=== PATIENT | female | born 1935 | race Caucasian/White ===

== ENCOUNTER → 2017-08-16 | Outpatient (CLI) | payer OTHER ==
[~2017-08-16] MED LIST: ALLEGRA ALLERGY60 MG PO; CALCIUM PO; CHOL10002 PO; Caltrate-600 W1 EACH; Estrace Vagin42.5 GM PV; GABA100 PO; LATANOPROST2.5 ML OP; LORTAB 10 MG-3473 ML PO; METPRE4DP PO; MULVIT; MULVITMINF PO; MYRBETRIQ50 MG PO; NAPR500 PO; NEURONTIN; Norco 5-325 Ta1 EACH PO; OXYB5 PO; PRIM50 PO; Sulfamethoxazo1 EAC4 PO; TIMO10T; VITAMIN B COMPLEX PO; Zithromax250 MG PO; [UNRECOGNIZED DRUG - OTHER]; [UNRECOGNIZED DRUG - REMARK]
== END | disposition home or self-care (01) ==
LOC: LAB EV 08:46
DX: N30.01 Acute cystitis with hematuria (principal)
CPT/HCPCS: 87077; 87086; 87186

== ENCOUNTER → 2017-08-24 | Outpatient (CLI) | payer OTHER ==
[2017-08-27 01:40] LABS: HPV Genotype 16 Not Detected (NOTDET); HPV Genotype 18 Not Detected (NOTDET)
[2017-09-04 11:25] LABS: HPV High Risk Other Not Detected (NOTDET)
== END | disposition home or self-care (01) ==
LOC: OLS 16:38
PROVIDERS: Nurse Practitioner Women's Health
DX: Z12.72 Encounter for screening for malignant neoplasm of vagina (principal); Z91.89 Other specified personal risk factors, not elsewhere classified
CPT/HCPCS: 87624; G0123

== ENCOUNTER → 2017-09-17 15:27 | Emergency (ER) | payer OTHER ==
[~2017-09-17] VITALS: Ht 172.7 cm; Wt 74.8 kg
== END | disposition home or self-care (01) ==
LOC: ER 15:27
DX: S93.402A Sprain of unspecified ligament of left ankle, initial encounter (principal); E11.40 Type 2 diabetes mellitus with diabetic neuropathy, unspecified; Z79.899 Other long term (current) drug therapy; W18.30XA Fall on same level, unspecified, initial encounter
CPT/HCPCS: 29515; 73610; 99283

== ENCOUNTER → 2017-10-18 | Outpatient (CLI) | payer OTHER | END | disposition home or self-care (01) | LOC: LAB EV 09:53 → LAB SHORT 09:53 | DX: N39.0 Urinary tract infection, site not specified (principal) | CPT/HCPCS: 87077; 87086; 87186 ==

== ENCOUNTER → 2018-02-12 | Outpatient (CLI) | payer OTHER | END | disposition home or self-care (01) | LOC: LAB EV 17:53 → LAB SHORT 17:53 | DX: N30.01 Acute cystitis with hematuria (principal) | CPT/HCPCS: 87077; 87086; 87186 ==

== ENCOUNTER → 2018-06-06 | Outpatient (CLI) | payer OTHER | END | disposition home or self-care (01) | LOC: LAB SHORT 10:44 → LAB EV 10:44 | DX: N39.0 Urinary tract infection, site not specified (principal) | CPT/HCPCS: 87086 ==

== ENCOUNTER → 2018-12-10 | Outpatient (CLI) | payer OTHER ==
[~2018-12-10] MED LIST changes: +ALEN70; +CEFD300 PO; +CEFP200 PO; +ONDA4ODT MM; +PREG200; +PROM25 PO; +Primidone50 MG
== END | disposition home or self-care (01) ==
LOC: LAB SHORT 13:50 → LAB EV 13:50
DX: N39.0 Urinary tract infection, site not specified (principal)
CPT/HCPCS: 87086

== ENCOUNTER → 2019-01-11 | Outpatient (CLI) | payer OTHER | END | disposition home or self-care (01) | LOC: LAB SHORT 15:12 → LAB EV 15:12 | DX: N39.0 Urinary tract infection, site not specified (principal) | CPT/HCPCS: 87086 ==

== ENCOUNTER 2019-01-12 04:11 | Emergency (ER) | payer OTHER ==
[~2019-01-12] VITALS: Ht 172.7 cm; Wt 78.9 kg
[~2019-01-12 04:11] MED LIST changes: -ALEN70; -CEFD300 PO; -CEFP200 PO; -ONDA4ODT MM; -PREG200; -PROM25 PO; -Primidone50 MG
[2019-01-12] MEDS ORDERED: Primidone50 MG (04:27)
[2019-01-12] MEDS ORDERED: ALEN70 (04:27)
[2019-01-12] MEDS ORDERED: PREG200 (04:28)
[2019-01-12] MEDS ORDERED: CEFD300 PO (04:30)
[2019-01-12 05:31] LABS: BASOPHILS ABSOLUTE AUTO 0.02 K/mm3 (0.00-0.23); BASOPHILS PERCENT AUTO 0 % (0-2); EOSINOPHILS ABSOLUTE AUTO 0.17 K/mm3 (0.00-0.68); EOSINOPHILS PERCENT AUTO 3 % (0-6); Hematocrit 38.9 % (33.0-51.0); Hemoglobin 12.9 g/dL (11.5-16.0); IMMATURE GRAN ABSOLUTE AUTO 0.02 K/mm3 (0.00-0.10); IMMATURE GRAN PERCENT AUTO 0 % (0-1); LYMPHOCYTES ABSOLUTE AUTO 1.03 K/mm3 (0.84-5.20); LYMPHOCYTES PERCENT AUTO 17 % (21-46); MONOCYTES ABSOLUTE AUTO 0.43 K/mm3 (0.16-1.47); MONOCYTES PERCENT AUTO 7 % (4-13); Mean Corpuscular HGB 30.4 pg (26.0-34.0); Mean Corpuscular HGB Conc 33.2 g/dL (31.5-36.5); Mean Corpuscular Volume 92 fL (80-100); NEUTROPHILS ABSOLUTE AUTO 4.24 K/mm3 (1.96-9.15); NEUTROPHILS PERCENT AUTO 72 % (41-73); RDW Coefficient Variation 14.4 % (11.7-14.2); RDW Standard Deviation 48.3 fL (35.1-46.3); Red Blood Cell Count 4.25 M/mm3 (3.80-5.20); White Blood Cell Count 5.91 K/mm3 (4.00-11.30)
[2019-01-12 05:39] LABS: Platelet Count 193 K/mm3 (150-400)
[2019-01-12 05:49] LABS: Alanine Aminotransfer (ALT/SGP 14 U/L (12-78); Albumin, Blood 3.5 g/dL (3.4-5.0); Albumin/Globulin Ratio 0.9 (0.8-1.8); Alk Phos 68 U/L (50-136); Anion Gap 7 mmol/L (6-16); Aspartate Aminotrans (AST/SGOT 25 U/L (12-37); Bilirubin, Total 0.5 mg/dL (0.1-1.0); Blood Urea Nitrogen 7 mg/dL (8-24); Bun/Creatinine Ratio 11.3 (12.0-20.0); CO2, Blood 24 mmol/L (21-32); Calcium, Blood 8.4 mg/dL (8.5-10.1); Chloride, Blood 104 mmol/L (98-108); Creatinine, Blood 0.62 mg/dL (0.40-1.00); Globulin, Blood 3.9 g/dL (2.2-4.0); Glomerular Filtration Rate >60 (60-); Glucose, Blood 110 mg/dL (70-99); Sodium, Blood 135 mmol/L (136-145); Total Protein, Blood 7.4 g/dL (6.4-8.2)
[2019-01-12] MEDS ORDERED: CEFP200 PO (07:12)
[2019-01-12] MEDS ORDERED: ONDA4ODT MM (07:12)
== END 2019-01-12 07:25 | disposition home or self-care (01) ==
LOC: ER 04:11
PROVIDERS: Emergency Medicine
DX: R11.2 Nausea with vomiting, unspecified (principal); T36.1X5A Adverse effect of cephalosporins and other beta-lactam antibiotics, initial encounter; N39.0 Urinary tract infection, site not specified; Z88.5 Allergy status to narcotic agent; Z79.899 Other long term (current) drug therapy; E11.40 Type 2 diabetes mellitus with diabetic neuropathy, unspecified
CPT/HCPCS: 36415; 80053; 83690; 85025; 96374; 99283-25; J2405

== ENCOUNTER 2019-01-16 08:15 | Emergency (ER) | payer OTHER ==
[~2019-01-16] VITALS: Ht 172.7 cm; Wt 78.9 kg
[~2019-01-16 08:15] MED LIST changes: +ALEN70; +CEFD300 PO; +CEFP200 PO; +ONDA4ODT MM; +PREG200; +Primidone50 MG
[2019-01-16 09:15] LABS: Chloride (POC) 99 mmol/L (98-108); Creatinine (POC) 0.7 mg/dL (0.6-1.0); Glucose (ISTAT POC) 141 mg/dL (70-99); Hemoglobin (POC) 13.6 g/dL (12.0-16.0); Potassium (POC) 3.8 mmol/L (3.5-5.5); Sodium (POC) 136 mmol/L (135-148); Total CO2 (POC) 25 mmol/L (21-32)
[2019-01-16] MEDS ORDERED: PROM25 PO (10:05)
== END 2019-01-16 10:35 | disposition home or self-care (01) ==
LOC: ER 08:15
PROVIDERS: Physician Assistant
DX: R11.0 Nausea (principal); Z88.5 Allergy status to narcotic agent; Z79.899 Other long term (current) drug therapy; E11.40 Type 2 diabetes mellitus with diabetic neuropathy, unspecified
CPT/HCPCS: 80047; 85014; 99283

== ENCOUNTER → 2019-01-25 | Outpatient (CLI) | payer OTHER ==
[~2019-01-25] MED LIST changes: +PROM25 PO
[2019-01-25 13:30] LABS: BASOPHILS ABSOLUTE AUTO 0.02 K/mm3 (0.00-0.23); BASOPHILS PERCENT AUTO 0 % (0-2); EOSINOPHILS ABSOLUTE AUTO 0.14 K/mm3 (0.00-0.68); EOSINOPHILS PERCENT AUTO 2 % (0-6); Hemoglobin 14.1 g/dL (11.5-16.0); IMMATURE GRAN ABSOLUTE AUTO 0.02 K/mm3 (0.00-0.10); IMMATURE GRAN PERCENT AUTO 0 % (0-1); LYMPHOCYTES ABSOLUTE AUTO 1.29 K/mm3 (0.84-5.20); LYMPHOCYTES PERCENT AUTO 19 % (21-46); MONOCYTES ABSOLUTE AUTO 0.46 K/mm3 (0.16-1.47); MONOCYTES PERCENT AUTO 7 % (4-13); Mean Corpuscular HGB 30.3 pg (26.0-34.0); Mean Corpuscular HGB Conc 34.4 g/dL (31.5-36.5); Mean Platelet Volume 9.3 fL (9.1-12.4); NEUTROPHILS ABSOLUTE AUTO 4.82 K/mm3 (1.96-9.15); NEUTROPHILS PERCENT AUTO 71 % (41-73); Platelet Count 296 K/mm3 (150-400); RDW Coefficient Variation 14.7 % (11.7-14.2); Red Blood Cell Count 4.65 M/mm3 (3.80-5.20); White Blood Cell Count 6.75 K/mm3 (4.00-11.30)
[2019-01-25 13:31] LABS: Mean Corpuscular Volume 88 fL (80-100)
[2019-01-25 13:39] LABS: Alanine Aminotransfer (ALT/SGP 35 U/L (12-78); Albumin, Blood 3.6 g/dL (3.4-5.0); Albumin/Globulin Ratio 0.9 (0.8-1.8); Alk Phos 64 U/L (40-126); Anion Gap 11 mmol/L (6-16); Aspartate Aminotrans (AST/SGOT 24 U/L (12-37); Bilirubin, Total 0.3 mg/dL (0.1-1.0); Blood Urea Nitrogen 14 mg/dL (8-24); Bun/Creatinine Ratio 18.7 (12.0-20.0); CO2, Blood 24 mmol/L (21-32); Calcium, Blood 8.7 mg/dL (8.5-10.1); Chloride, Blood 96 mmol/L (98-108); Creatinine, Blood 0.75 mg/dL (0.40-1.00); Globulin, Blood 3.9 g/dL (2.2-4.0); Glomerular Filtration Rate >60 (60-); Glucose, Blood 126 mg/dL (70-99); Potassium, Blood 4.5 mmol/L (3.5-5.5); Sodium, Blood 131 mmol/L (136-145); Total Protein, Blood 7.5 g/dL (6.4-8.2)
[2019-01-25 13:42] LABS: Source, Urine Catheter
[2019-01-25 13:46] LABS: Red Blood Cells, Urine 0-2 /hpf (0-2); Squamous Epithelial Cells Not Seen /hpf (Few); White Blood Cells, Urine 25-50 /hpf (0-5)
[2019-01-25 13:47] LABS: Bacteria Few /hpf
== END | disposition home or self-care (01) ==
LOC: LAB SHORT 13:25 → LAB EV 13:25
PROVIDERS: General Practice
DX: I95.1 Orthostatic hypotension (principal); R82.90 Unspecified abnormal findings in urine
CPT/HCPCS: 80053; 81015; 83690; 85025; 87077; 87086; 87186

== ENCOUNTER → 2019-01-26 | Outpatient (CLI) | payer OTHER ==
[2019-01-26 10:52] LABS: BASOPHILS ABSOLUTE AUTO 0.02 K/mm3 (0.00-0.23); BASOPHILS PERCENT AUTO 0 % (0-2); EOSINOPHILS PERCENT AUTO 2 % (0-6); Hematocrit 39.2 % (33.0-51.0); Hemoglobin 13.4 g/dL (11.5-16.0); IMMATURE GRAN ABSOLUTE AUTO 0.02 K/mm3 (0.00-0.10); IMMATURE GRAN PERCENT AUTO 0 % (0-1); LYMPHOCYTES ABSOLUTE AUTO 0.94 K/mm3 (0.84-5.20); LYMPHOCYTES PERCENT AUTO 18 % (21-46); MONOCYTES ABSOLUTE AUTO 0.41 K/mm3 (0.16-1.47); MONOCYTES PERCENT AUTO 8 % (4-13); Mean Corpuscular HGB 30.5 pg (26.0-34.0); Mean Corpuscular HGB Conc 34.2 g/dL (31.5-36.5); Mean Corpuscular Volume 89 fL (80-100); Mean Platelet Volume 9.2 fL (9.1-12.4); NEUTROPHILS ABSOLUTE AUTO 3.63 K/mm3 (1.96-9.15); NEUTROPHILS PERCENT AUTO 71 % (41-73); Platelet Count 248 K/mm3 (150-400); RDW Coefficient Variation 14.9 % (11.7-14.2); RDW Standard Deviation 48.5 fL (35.1-46.3); Red Blood Cell Count 4.39 M/mm3 (3.80-5.20); White Blood Cell Count 5.12 K/mm3 (4.00-11.30)
[2019-01-26 11:05] LABS: Alanine Aminotransfer (ALT/SGP 33 U/L (12-78); Albumin, Blood 3.2 g/dL (3.4-5.0); Albumin/Globulin Ratio 0.9 (0.8-1.8); Alk Phos 57 U/L (40-126); Anion Gap 12 mmol/L (6-16); Aspartate Aminotrans (AST/SGOT 25 U/L (12-37); Bilirubin, Total 0.3 mg/dL (0.1-1.0); Blood Urea Nitrogen 7 mg/dL (8-24); Bun/Creatinine Ratio 10.1 (12.0-20.0); CO2, Blood 21 mmol/L (21-32); CPK Creatine Kinase 42 U/L (26-192); Calcium, Blood 8.8 mg/dL (8.5-10.1); Chloride, Blood 101 mmol/L (98-108); Creatinine, Blood 0.69 mg/dL (0.40-1.00); Globulin, Blood 3.5 g/dL (2.2-4.0); Glomerular Filtration Rate >60 (60-); Glucose, Blood 127 mg/dL (70-99); Potassium, Blood 3.9 mmol/L (3.5-5.5); Sodium, Blood 134 mmol/L (136-145); Total Protein, Blood 6.7 g/dL (6.4-8.2)
[2019-01-26 11:16] LABS: Troponin I <0.017 ng/mL (0.000-0.040)
[2019-01-26 11:22] LABS: Bacteria Not Seen /hpf; Red Blood Cells, Urine Rare /hpf (0-2); Source, Urine Clean Catch; Squamous Epithelial Cells Not Seen /hpf (Few); White Blood Cells, Urine 0-2 /hpf (0-5)
[2019-01-26 11:50] LABS: Source, Urine Catheter
[2019-01-26 11:54] LABS: Bacteria Not Seen /hpf; Squamous Epithelial Cells Rare /hpf (Few)
== END | disposition home or self-care (01) ==
LOC: LAB EV 10:46 → LAB SHORT 10:46
PROVIDERS: General Practice
DX: N39.0 Urinary tract infection, site not specified (principal); R00.2 Palpitations
CPT/HCPCS: 80053; 81015; 82550; 83605; 83880; 84484; 85025; 85651

== ENCOUNTER → 2019-01-27 | Outpatient (CLI) | payer OTHER ==
[2019-01-27 10:58] LABS: Source, Urine Clean Catch
[2019-01-27 11:00] LABS: BASOPHILS ABSOLUTE AUTO 0.02 K/mm3 (0.00-0.23); BASOPHILS PERCENT AUTO 0 % (0-2); EOSINOPHILS ABSOLUTE AUTO 0.11 K/mm3 (0.00-0.68); EOSINOPHILS PERCENT AUTO 2 % (0-6); Hematocrit 39.8 % (33.0-51.0); Hemoglobin 13.4 g/dL (11.5-16.0); IMMATURE GRAN ABSOLUTE AUTO 0.03 K/mm3 (0.00-0.10); IMMATURE GRAN PERCENT AUTO 0 % (0-1); LYMPHOCYTES ABSOLUTE AUTO 0.81 K/mm3 (0.84-5.20); LYMPHOCYTES PERCENT AUTO 12 % (21-46); MONOCYTES PERCENT AUTO 9 % (4-13); Mean Corpuscular HGB 30.2 pg (26.0-34.0); Mean Corpuscular HGB Conc 33.7 g/dL (31.5-36.5); Mean Corpuscular Volume 90 fL (80-100); Mean Platelet Volume 9.2 fL (9.1-12.4); NEUTROPHILS PERCENT AUTO 77 % (41-73); Platelet Count 266 K/mm3 (150-400); RDW Coefficient Variation 14.9 % (11.7-14.2); RDW Standard Deviation 48.6 fL (35.1-46.3); Red Blood Cell Count 4.43 M/mm3 (3.80-5.20); White Blood Cell Count 6.77 K/mm3 (4.00-11.30)
[2019-01-27 11:03] LABS: Bacteria Not Seen /hpf; Red Blood Cells, Urine 0-2 /hpf (0-2); Squamous Epithelial Cells Not Seen /hpf (Few); White Blood Cells, Urine 0-2 /hpf (0-5)
[2019-01-27 11:15] LABS: Alanine Aminotransfer (ALT/SGP 36 U/L (12-78); Albumin, Blood 3.1 g/dL (3.4-5.0); Albumin/Globulin Ratio 0.8 (0.8-1.8); Alk Phos 62 U/L (40-126); Anion Gap 8 mmol/L (6-16); Aspartate Aminotrans (AST/SGOT 28 U/L (12-37); Bilirubin, Total 0.2 mg/dL (0.1-1.0); Blood Urea Nitrogen 4 mg/dL (8-24); Bun/Creatinine Ratio 4.8 (12.0-20.0); CO2, Blood 26 mmol/L (21-32); Calcium, Blood 8.1 mg/dL (8.5-10.1); Chloride, Blood 105 mmol/L (98-108); Creatinine, Blood 0.84 mg/dL (0.40-1.00); Globulin, Blood 3.7 g/dL (2.2-4.0); Glomerular Filtration Rate >60 (60-); Glucose, Blood 127 mg/dL (70-99); Potassium, Blood 3.8 mmol/L (3.5-5.5); Sodium, Blood 139 mmol/L (136-145); Total Protein, Blood 6.8 g/dL (6.4-8.2)
[2019-01-27 11:23] LABS: Troponin I <0.017 ng/mL (0.000-0.040)
[2019-01-27 12:08] LABS: Free Thyroxine 1.26 ng/dL (0.70-1.60); Thyroid Stimulating Hormone 2.562 uIU/mL (0.360-4.800)
== END | disposition home or self-care (01) ==
LOC: LAB EV 10:55 → LAB SHORT 10:55
PROVIDERS: General Practice
DX: N39.0 Urinary tract infection, site not specified (principal); R00.2 Palpitations
CPT/HCPCS: 80053; 81015; 84439; 84443; 84484; 85025

== ENCOUNTER 2020-03-01 20:21 | Emergency (ER) | payer OTHER ==
[~2020-03-01] VITALS: Ht 175.3 cm; Wt 78.0 kg
[2020-03-01 21:42] LABS: Source, Urine Clean Catch
[2020-03-01 21:46] LABS: Bilirubin, Urine Neg (Neg); Blood, Urine 3+ (Neg); Glucose Qualitative, Urine Neg (Neg); Ketones, Urine Neg (Neg); Leukocyte Esterase, Urine 3+ (Neg); Nitrite, Urine Neg (Neg); Protein, Urine Neg (Neg); Urobilinogen, Urine NORM (Normal)
[2020-03-01 21:52] LABS: Appearance, Urine Clear (Clear); Color, Urine Yellow (P-Yellow)
[2020-03-01 21:53] LABS: Bacteria Few /hpf; Red Blood Cells, Urine 0-2 /hpf (0-2); Squamous Epithelial Cells Not Seen /hpf (Few)
[2020-03-01] MEDS ORDERED: CEFP200 PO (22:19)
== END 2020-03-01 23:18 | disposition home or self-care (01) ==
LOC: ER 20:21
PROVIDERS: Emergency Medicine
DX: N30.90 Cystitis, unspecified without hematuria (principal); E11.40 Type 2 diabetes mellitus with diabetic neuropathy, unspecified; Z46.6 Encounter for fitting and adjustment of urinary device; Z88.5 Allergy status to narcotic agent; Z79.899 Other long term (current) drug therapy
CPT/HCPCS: 51702; 81001; 87077; 87086; 87186; 99283-25; A9270-GY

== ENCOUNTER → 2020-07-04 | Outpatient (CLI) | payer OTHER ==
[~2020-07-04] MED LIST changes: +Acerola C500 MG PO; +BETIMOL5 ML; +GABA300 PO; +KAPSPARGO SPRIN25 MG PO; +KEFLEX500 MG PO; +MIDO5 PO; +Macrobid 100 M100 MG PO; +Primidone50 MG PO
== END | disposition home or self-care (01) ==
LOC: LAB 11:00 → LAB SHORT 11:00
DX: T83.511A Infection and inflammatory reaction due to indwelling urethral catheter, initial encounter (principal); N39.0 Urinary tract infection, site not specified
CPT/HCPCS: 87086

== ENCOUNTER 2020-07-29 06:45 | Day surgery (SDC) | payer OTHER, SELFPAY ==
[~2020-07-29] VITALS: Ht 175.3 cm; Wt 78.0 kg
[~2020-07-29 06:45] MED LIST changes: -Acerola C500 MG PO; -BETIMOL5 ML
[2020-07-29] MEDS ORDERED: Acerola C500 MG PO (07:38)
--- NOTE | 2020-07-29 11:28 | NUR ---
PT BROUGHT TO RECOVERY POST PACEMAKER INSERTION TO RIGHT SIDE CHEST. PT AOX4, TEARFUL, C/O RIGHT ARM PAIN. REPOSITIONED FOR COMFORT. RIGHT ARM PLACED INTO SLING. SISTER AT BEDSIDE, DR. OLSEN PRESENT TO DISCUSS RESULTS WITH PT AND FAMILY. PACEMAKER INSERTION SITE APPEARS TO BE WNL, NO ACTIVE BLEEDING OR OOZING NOTED. CALL LIGHT IN REACH.
--- NOTE | 2020-07-29 13:19 | NUR ---
PT MEDICATED WITH FENTANYL 25 MCG IVP FOR 5/10 PAIN TO RIGHT SHOULDER/ARM. PILLOW PLACED UNDER RIGHT ARM WHICH REMAINS IN SLING. PT REPORTS DECREASED PAIN DOWN TO 1/10. SISTER REMAINS AT BEDSIDE. WILL CONTINUE TO MONITOR.
--- NOTE | 2020-07-29 15:15 | NUR ---
PT TRANSFERED TO PCU VIA W/C. NO ACUTE DISTRESS NOTED AT TIME OF TRANSFER. RIGHT ARM REMAINS IN SLING, DRESSING INTACT, NO BLEEDING OR OOZING NOTED. PT REPORTS TOLERABLE PAIN TO RIGHT ARM/SHOULDER. SISTER PRESENT, PERSONAL BELONGINGS SENT TO PCU 16 WITH PATIENT.
--- NOTE | 2020-07-29 17:24 | NUR ---
ASSUMED CARE FROM [facility], SHIFT SUMMARY PT ARRIVED FROM THE [facility]ART [facility]ENTER AT APPROXIMATELY 1520. PT HAD A PACER PLACED THIS MORNING IN THE RIGHT CHEST WALL. PT ARRIVED WITH A SLING IN PLACE AND WAS GIVEN SCD'S AND POST PACER CARE INSTRUCTIONS UPON ARRIVAL. PT IS IN SR, HR AT 61 PER TELE MONITOR, Didi ISRAEL. VS STABLE, PT ON RA. PT DENIES PAIN AT THIS TIME. PT HAS CHRONIC ANDERSON CATH IN PLACE, WILL BE CHANGED BEFORE END OF SHIFT. PT IS ALERT AND ORIENTED, LUNG SOUNDS ARE CLEAR. PT HAS 2+EDEMA BLE. 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 PT IS AWAKE AND EATING DINNER AT THIS TIME
[2020-07-29 18:14] LABS: Source, Urine Catheter
[2020-07-29 18:33] LABS: Appearance, Urine Clear (Clear); Bilirubin, Urine Neg (Neg); Blood, Urine 3+ (Neg); Color, Urine Yellow (P-Yellow); Glucose Qualitative, Urine Neg (Neg); Ketones, Urine Neg (Neg); Leukocyte Esterase, Urine 2+ (Neg); Nitrite, Urine Neg (Neg); Protein, Urine Neg (Neg); Urobilinogen, Urine NORM (Normal); pH, Urine 6.5 (5.0-8.0)
[2020-07-29 18:48] LABS: Squamous Epithelial Cells Rare /hpf (Few)
[2020-07-29 18:49] LABS: Bacteria Rare /hpf
--- NOTE | 2020-07-29 18:56 | NUR ---
CATHETER PT HAS A CHRONIC INDWELLING ANDERSON, IT WAS REPLACED THIS EVENING PER PROTOCOL. PT TOLERATED WELL. UA WAS SENT TO THE LAB. PT REPORTS THAT IT WILL BE REMOVED IN THE NEXT FEW WEEKS AND REPLACED WITH A SUPRAPUBIC CATHETER.
--- NOTE | 2020-07-30 06:23 | NUR ---
SHIFT SUMMARY PT A&O X 3; PLEASANT & COMPLIANT W/ CARE; VSS; PACED IN 60'S ON TELE; ARM SLING IN PLACE; SMALL AMOUNT DRIED BLOOD ON DRESSING; C/O PAIN AND ICE PACK OFFERED; TYLENOL ADMINISTERED PER EMAR; ANDERSON PATENT & DRAINING YELLOW, ODOR NOTED; PT SLEPT SEVERAL HOURS IN BETWEEN INTERVENITONS; CALL LIGHT IN REACH; BED IN LOWEST POSITION; WILL CONTINUE TO MONITOR CLOSELY UNTIL HAND OFF TO DAY SHIFT RN.
--- NOTE | 2020-07-30 10:04 | NUR ---
ASSUMED CARE FROM [facility] RN, MORNING UPDATE PT WAS AWAKE AND PARTICIPATED IN MORNING BEDSIDE REPORT. VS STABLE THIS MORNING. AT APPROXIMATELY 0815 PT WENT INTO SVT, HR IN 140s. ECG STRIPS WERE PRINTED, AN EKG WAS COMPLETED. DR. OLSEN CAME TO BESIDE AND ADENSOINE WAS ADMINISTERED AND THE METOPROLOL WAS INCREASED. PT FELT SOME FAST BEATING IN HER CHEST BUT WAS OTHERWISE ASYMPTOMATIC. VS STABLE, PACER SITE C/D/I. PT WEARING SLING AND SCDs. PT ENJOYED BREAKFAST AND WILL REMAIN HERE FOR OBS UNTIL THE SVT IS CONTROLLED BY MEDICATION
--- NOTE | 2020-07-30 12:25 | NUR ---
DISCHARGE PT DISCHARGED AND LEFT THE PCU AT APPROXIMATELY 1223. PT LEFT VIA WHEELCHAIR ACCOMPANIED BY GREEN CHAIN WORKER AND SISTER. PT WAS GIVEN DISCHARGE INSTRUCTIONS TO CARE FOR THE PACEMAKER SITE, SHE WAS GIVEN A SLING AND INFORMATION REGARDING FOLLOW UP APPOINTMENTS AND MEDICATION DOSAGE CHANGES.
[2020-10-06] MEDS ORDERED: BETIMOL5 ML (13:36)
== END 2020-07-30 12:24 | disposition home or self-care (01) ==
LOC: MHTC 06:45 → PCU 15:00 → MHTC 07-30 12:24
PROVIDERS: Internal Medicine Cardiovascular Disease
DX: I49.5 Sick sinus syndrome (principal); I47.1 Supraventricular tachycardia; K21.9 Gastro-esophageal reflux disease without esophagitis; E78.5 Hyperlipidemia, unspecified; M19.90 Unspecified osteoarthritis, unspecified site; M81.0 Age-related osteoporosis without current pathological fracture; E11.9 Type 2 diabetes mellitus without complications; I10 Essential (primary) hypertension; I87.2 Venous insufficiency (chronic) (peripheral); I83.899 Varicose veins of unspecified lower extremity with other complications; R55 Syncope and collapse; Z88.5 Allergy status to narcotic agent; Z96.641 Presence of right artificial hip joint; Z95.0 Presence of cardiac pacemaker
CPT/HCPCS: 33208; 71045; 71046; 76937; 81001; 93005; 93010; 99152; 99153; A9270; C1781; C1785; C1894; C1898; J0153; J0690; J1644; J2250; J3010; J7030; J7040; Q2038

== ENCOUNTER → 2020-08-03 | Outpatient (CLI) | payer OTHER, SELFPAY ==
[~2020-08-03] MED LIST changes: +Acerola C500 MG PO; +BETIMOL5 ML
== END | disposition home or self-care (01) ==
LOC: LAB SHORT 12:27 → PLD 12:27 → LAB 12:27
DX: R30.9 Painful micturition, unspecified (principal)
CPT/HCPCS: 87086

== ENCOUNTER 2020-08-24 07:04 | Day surgery (SDC) | payer OTHER, SELFPAY ==
[~2020-08-24] VITALS: Ht 172.7 cm; Wt 77.0 kg
[~2020-08-24 07:04] MED LIST changes: -BETIMOL5 ML
--- NOTE | 2020-08-24 09:30 | NUR ---
PT BACK TO RECOVERY ROOM VIA BED AFTER PROCEDURE. APPROX 275 MLS BLOOD TINGED URINE PRESENT IN SUPRA PUBIC DRAINAGE BAG, APPROX 400 MLS BLOOD TINGED URINE PRESENT IN ANDERSON CATH BAG. BOTH BAGS DRAINED, WILL CONTINUE TO MONITOR PT'S OUTPUT UNTIL DC'D HOME.
--- NOTE | 2020-08-24 11:34 | NUR ---
DR SWARTZ AT BEDSIDE SPEAKING WITH PT AND SISTER ABOUT PROCEDURE AND PLANS FOR UPSIZING CATH IN A MONTH AND A HALF.
--- NOTE | 2020-08-24 12:00 | NUR ---
IV DC'D, CATH INTACT. PT AND SISTER VERBALIZED UNDERSTANDING OF DC INSTRUCTIONS AND FOLLOW UP INFORMATION. OUT TO CAR VIA WHEELCHAIR BY RN.
[2020-10-06] MEDS ORDERED: BETIMOL5 ML (13:36)
== END 2020-08-24 11:50 | disposition home or self-care (01) ==
LOC: MHTC 07:04 → ORSCMMR 07:05 → MHTC 07:16
DX: R33.9 Retention of urine, unspecified (principal); N31.9 Neuromuscular dysfunction of bladder, unspecified; I10 Essential (primary) hypertension; E11.9 Type 2 diabetes mellitus without complications; K21.9 Gastro-esophageal reflux disease without esophagitis; E78.5 Hyperlipidemia, unspecified; M19.90 Unspecified osteoarthritis, unspecified site; M81.0 Age-related osteoporosis without current pathological fracture; Z87.440 Personal history of urinary (tract) infections
CPT/HCPCS: 51102; 76937; 82947; C1729; C1769; J2250; J2370; J2704; J3010; J7120; Q9967

== ENCOUNTER 2020-10-01 18:27 | Emergency (ER) | payer OTHER ==
[~2020-10-01] VITALS: Ht 175.3 cm; Wt 78.9 kg
[2020-10-06] MEDS ORDERED: BETIMOL5 ML (13:36)
== END 2020-10-01 21:16 | disposition home or self-care (01) ==
LOC: ER 18:27
DX: T83.198A Other mechanical complication of other urinary devices and implants, initial encounter (principal); E11.40 Type 2 diabetes mellitus with diabetic neuropathy, unspecified
CPT/HCPCS: 51702; 99283-25

== ENCOUNTER 2020-10-07 07:37 | Day surgery (SDC) | payer OTHER ==
[~2020-10-07] VITALS: Ht 175.3 cm; Wt 77.7 kg
[~2020-10-07 07:37] MED LIST changes: +BETIMOL5 ML
--- NOTE | 2020-10-07 11:44 | NUR ---
DAUGHTER AT THE BEDSIDE. ANDERSON AND LEG BAG REMOVED. ROLANDO CARE DONE BY THE PATIENT AND TOLERATED WELL. TEACHING DONE AT THE BEDSIDE. 600 ML OF DARK YELLOW URINE NOTED IN THE BAG. SUPRAPUBIC ANDERSON IN PLACE WITH A ANDERSON DRAINBAG. NEED THE CONNECTOR TO CONNECT TO THE LEG BAG.
--- NOTE | 2020-10-07 12:13 | NUR ---
Leg bag and spurapubic ontiveros connected with sterile technique and patient off the monitor and dressing self with daughters help. gatheter all belongings.
--- NOTE | 2020-10-07 12:27 | NUR ---
PATIENT DISCAHRGED HOME WITH ALL BELONGINGS AND LEG BAG IN PLACE TO THE SP CATHETER. DRESSING TO THE ABD SP SITE CDI, NO DRAINAGE NOTED. DISCHARGED HOME WITH DAUGHTER SANDWICH WRAPPER. ALL QUESTIONS ANSWERED AND NO C/O PAIN AT THE TIME OF DISCHARGE. PIV TOTHE LEFT AC REMOVED AND PRESSURE DRESSING APPLIED.
== END 2020-10-07 12:30 | disposition home or self-care (01) ==
LOC: MHTC 07:37
DX: Z46.6 Encounter for fitting and adjustment of urinary device (principal); N31.9 Neuromuscular dysfunction of bladder, unspecified; R60.0 Localized edema; G25.0 Essential tremor; E11.9 Type 2 diabetes mellitus without complications; Z87.440 Personal history of urinary (tract) infections; Z88.5 Allergy status to narcotic agent; Z88.8 Allergy status to other drugs, medicaments and biological substances
CPT/HCPCS: 50437; 85347; 99152; 99153; C1769; J2250; J3010; J7040; Q9967

== ENCOUNTER 2023-01-11 22:21 | Emergency (ER) | payer OTHER ==
[~2023-01-11] VITALS: Ht 175.3 cm; Wt 78.0 kg
[~2023-01-11 22:21] MED LIST changes: +CIPR500 PO
[2023-01-12 00:19] VITALS: BP 122/66
== END 2023-01-12 00:20 | disposition home or self-care (01) ==
LOC: ER 22:21
DX: T83.090A Other mechanical complication of cystostomy catheter, initial encounter (principal); E11.40 Type 2 diabetes mellitus with diabetic neuropathy, unspecified; Z88.2 Allergy status to sulfonamides; Z88.5 Allergy status to narcotic agent; X58.XXXA Exposure to other specified factors, initial encounter
CPT/HCPCS: 99283

== ENCOUNTER → 2024-10-03 | Outpatient (CLI) | payer OTHER ==
[2024-10-03 15:05] LABS: Creatinine, Urine Random 49.3 mg/dL (27.00-270.00)
[2024-10-03 15:08] LABS: Microalb/Creat Ratio UR, Rand 85.193 mg/g (0.000-30.000)
== END ==
LOC: LAB SHORT 12:00 → LAB 12:00
PROVIDERS: Internal Medicine
DX: E11.42 Type 2 diabetes mellitus with diabetic polyneuropathy (principal)
CPT/HCPCS: 82043; 82570